=== PATIENT | female | born 1985 | race African-American/Black ===

== ENCOUNTER 2021-01-14 20:02 | Emergency (ER) | payer BC ==
[~2021-01-14] VITALS: Ht 160 cm; Wt 77.1 kg
[2021-01-14] MEDS ORDERED: HYDROCODONE/APAP 5MG-325MG TAB PO STA (20:26)
[2021-01-14] MEDS ORDERED: KETOROLAC TROMETHAMINE 30 MG/ML VIAL IV STA (20:26)
[2021-01-14] MEDS ORDERED: CLINDAMYCIN 600MG / 50ML 50 ML IV ONE ×2 (20:30→20:55)
[2021-01-14] MEDS ORDERED: METHYLPREDNISOLONE SOD SUCC 125 MG/2ML VIAL IV ONE (20:30)
[2021-01-14] MEDS ORDERED: TRIMETHOPRIM/SULFAMETHOXAZOLE 160-800 MG TAB PO ONE (20:30)
[2021-01-14] MEDS ORDERED: METHYLPREDNISOLONE SOD SUCC 125 MG/2ML VIAL ONE (20:53)
[2021-01-14] MEDS ORDERED: TRIMETHOPRIM/SULFAMETHOXAZOLE 160-800 MG TAB ONE (20:53)
[2021-01-14] MEDS ORDERED: KETOROLAC TROMETHAMINE 30 MG/ML VIAL ONE (20:54)
[2021-01-14] MEDS ORDERED: HYDROCODONE/APAP 5MG-325MG TAB ONE (20:54)
[2021-01-14] MEDS ORDERED: PREDNISONE20 MG PO (21:05)
[2021-01-14] MEDS ORDERED: ULTRAM50 MG PO (21:05)
[2021-01-14] MEDS ORDERED: CLINDAMYCIN HC300 MG PO (21:05)
[2021-01-14] MEDS ORDERED: BACTRIM DS TAB1 EACH PO (21:05)
[2021-01-14 21:28] VITALS: BP 108/73
== END 2021-01-14 21:28 | disposition home or self-care (01) ==
LOC: FSED 20:15
DX: N61.0 Mastitis without abscess (principal)
CPT/HCPCS: 99283; J1885; J2930